=== PATIENT | female | born 1995 | race African-American/Black ===

== ENCOUNTER 2016-04-21 03:32 | Emergency (ER) | payer SELFPAY ==
[~2016-04-21] VITALS: Ht 177.8 cm; Wt 86.9 kg
[~2016-04-21 03:32] MED LIST: LTRCR15 TOP
[2016-04-21 03:36] VITALS: TEMP 36.7; Ht 177.8 cm; Wt 86.9 kg
[2016-04-21] MEDS ORDERED: LIDOCAINE/EPINEPH/TETRACAINE 1 EA SYR EXT STA (03:58)
--- NOTE | 2016-04-21 04:07 | EMERGENCY ROOM VISIT NOTE ---
History First contact with patient: 03:45 Chief Complaint: HEAD INJURY (MINOR) Stated Complaint: RINGING IN EARS,DIZZY History of Present Illness The patient is a 20 year old female who presents to the Emergency Room with complaints of fall sustaining a head injury and a facial laceration tonight. Tetanus is current. Patient complains of tinnitus. Patient denies headache, neck pain, balance problems, facial pain, dental pain, vision problems, loss of hearing, chest pain, dyspnea, abdominal pain, back pain, alcohol or drug use tonight. No other complaint per patient. No prior head injuries. Review of Systems See HPI for pertinent positives & negatives. A total of 10 systems reviewed and were otherwise negative. Past Medical/Surgical History Medical Problems: (1) No Known Active Medical Problems Social History Smoking Status: Never Smoker Smokeless Tobacco Use: No Drug Use: none Current/Historical Medications Scheduled Clotrimazole 1% (Lotrimin 1% *), 1 OZ TOP TID Miscellaneous Medications None (Patient States No Home Meds) Allergies Coded Allergies: No Known Allergies (Unverified , 04/20/12) Physical Exam Vital Signs Date Time Temp Pulse Resp B/P Pulse Ox O2 Delivery O2 Flow Rate FiO2 04/21/16 03:36 36.7 110 18 159/98 98 Room Air 04/21/16 03:36 18 Physical Exam VITALS: Vitals are noted on the nurse's note and reviewed by myself. Vital signs stable. GENERAL: Pleasant female, in no acute distress, nondiaphoretic, well-developed well-nourished. SKIN: 2.6 cm left facial laceration that appears clean and keeping The rest of the skin was without rashes, erythema, edema, or bruising. There is no tenting of the skin. Capillary reflex less than 2 seconds. HEAD: Normocephalic atraumatic. Face: Nontender to palpation. Patient can fully open and close jaw without difficulties. Dental exam: No loose or chipped teeth. EARS: External auditory canals clear, tympanic membranes pearly latif without erythema or effusion bilaterally. EYES: Pupils equal round and reactive to light and accommodation. Conjunctivae without injection, sclerae without icterus. Extraocular movements intact. NOSE: Patent, turbinates without inflammation or discharge. No sinus tenderness. MOUTH: Mucous membranes moist. Pharynx without erythema or exudate. Uvula midline. Airway patent. Tongue does not deviate. NECK: Supple without nuchal rigidity. No lymphadenopathy. No thyromegaly. Cervical spine is nontender. No JVD. HEART: Regular rate and rhythm without murmurs gallops or rubs. LUNGS: Clear to auscultation bilaterally without wheezes, rales or rhonchi. No dullness to percussion. No retractions or accessory muscle use. ABDOMEN: Positive bowel sounds x 4. Normal tympanic percussion. Soft, nontender, without masses or organomegaly. Amos sign negative. No guarding or rebound tenderness. MUSCULOSKELETAL: No muscle atrophy, erythema, or edema noted. NEURO: Patient was alert and oriented to person place and time. Normal sensation to light and sharp touch. No focal neurological deficits. Cranial nerves II-12 grossly intact and no pronator drift. Cerebellar exam intact Medical Decision & Procedures Procedure Location: Left facial laceration Total length: 2.6 cm Complexity: simple Verbal consent was obtained after the risks and benefits were explained, including but not limited to bleeding, scarring, infection, pain, and bone/joint /nerve damage. At this time, the risks of the procedure are less than the risks of NOT performing the procedure. A time out was taken and the correct patient and site identified. The skin was prepped with betadine. The target area was anesthetized with LET. Copious irrigation was performed using NSS. The skin was re-prepped with betadine and a sterile field set. The wound was explored for foreign bodies and none found. Examination revealed no injury to deep structures such as tendons, bone, or significant blood vessels. Debridement was not performed. The wound edges were approximated using 5, 6-0 simple interrupted nylon sutures. Hemostasis and excellent approximation was achieved. Antibacterial ointment and a sterile dressing applied. Detailed wound care instructions and signs and symptoms of infection reviewed with the pt. No complications and the patient tolerated the procedure well. ED Course Prior records/ancillary studies reviewed. Triage Nursing notes reviewed. Additional history obtained from family. The patient's history was concerning for traumatic head injury Differential diagnosis: Etiologies such as laceration, concussion, contusion, fracture, subdural hematoma, epidural hematoma, intraparenchymal hemorrhage, as well as other traumatic pathologies were entertained. Physical examination findings: As above. ER treatment provided: Laceration repaired as above On reassessment the patient felt better. Diagnostics interpreted by me: Deferred It appears the patient has a mild head injury with laceration and tinnitus. I discussed the risks and the benefits of CT scanning. Clinically the patient is doing well and does not appear to have a significant underlying injury. The pt felt comfortable with conservative observation with the understanding if the clinical picture change that imaging may be necessary at a later time. I gave my usual and customary discussion regarding this issue. Family was advised if ringing in the ears persists then to follow-up family care or audiology. They' re advised to avoid anti-inflammatories until this resolves. They're counseled on head injury signs and symptoms and laceration care. They're advised to return to the ER immediately for headache, fevers, confusion, lethargy, worsening signs or symptoms or as needed. By the evaluation outlined above emergent etiologies such as fracture, subdural hematoma, epidural hematoma, intraparenchymal hemorrhage, as well as others were deemed relatively unlikely. The pt informed about the findings as listed above. All questions were answered and pleased with the treatment. Return instructions were outlined and the patient was discharged in stable condition. Referral: The patient was referred back to their primary care physician for follow-up in 2 to 3 days for a recheck of the current condition. Medical Decision As above Impression Primary Impression: Mild closed head injury Additional Impressions: Facial laceration Fall Tinnitus, bilateral Departure Information Dispostion Home / Self-Care Condition GOOD Referrals No Doctor, Assigned (PCP) Patient Instructions A Signature Page, [facility] [employer] Additional Instructions Ice compresses for 20 minutes at a time four times daily for 2-3 days. If you're ringing in the ears persists then follow-up family care or audiology. Avoid taking anti-inflammatories until ringing in the ear resolves. Keep wound clean and dry. Do not allow any crusting or dried blood to accumulate on sutures. If this occurs, use a 1:1 solution of hydrogen peroxide/ water on a Q-tip to clean the wound. Use an antibiotic ointment for 3-4 days, then let wound dry. Suture removal in 5-7 days. Return sooner for any signs of infection (increasing redness, swelling, drainage). Ice and elevate for swelling and pain. Keep covered when in sun until sutures removed then SPF 50 or higher for one year. Vitamin E oil if desired two weeks after suture removal for reduction of scar. Read head injury handout and return for any symptoms. Tylenol 1000 mg as needed for pain (Maximum 3000 mg Tylenol in 24 hr period). Avoid alcohol and contact sports/activities for one week and follow up with family doctor prior to returning to these activities if still symptomatic. Ice and elevate head. Return to ER sooner for headache, fevers, confusion, lethargy, worsening signs or symptoms or as needed. Problem Qualifiers Primary Impression: Mild closed head injury Encounter type: initial encounter Qualified Codes: S09.90XA - Unspecified injury of head, initial encounter Additional Impressions: Facial laceration Encounter type: initial encounter Qualified Codes: S01.81XA - Laceration without foreign body of other part of head, initial encounter Fall Encounter type: initial encounter Qualified Codes: W19.XXXA - Unspecified fall, initial encounter
[2016-04-21 04:48] VITALS: BP 149/85; PULSE 88; O2SAT 100
== END 2016-04-21 04:47 | disposition home or self-care (01) ==
LOC: C.EDB 03:33 → C.EDA 04:47
DX: S01.81XA Laceration without foreign body of other part of head, initial encounter (principal); S09.90XA Unspecified injury of head, initial encounter; W19.XXXA Unspecified fall, initial encounter; H93.13 Tinnitus, bilateral